=== PATIENT | female | born 1995 | race Two or more races ===

== ENCOUNTER 2017-05-31 10:11 | Emergency (ER) | payer SELFPAY ==
[~2017-05-31] VITALS: Ht 165.1 cm; Wt 70.9 kg
[2017-05-31 10:37] LABS: BILIRUBIN,URINE NEGATIVE (NEG); GLUCOSE,URINE NEGATIVE (NEG); NITRITE,URINE NEGATIVE (NEG); PH,URINE 7.5; PROTEIN,URINE NEGATIVE (NEG-TRACE); UROBILINOGEN,URINE 0.2 mg/dL (0.2 mg/dL)
[2017-05-31 10:47] LABS: BACTERIA,URINE FEW /HPF (0-FEW); SQUAMOUS EPITHELIAL CELL,UR MOD /LPF
--- NOTE | 2017-05-31 10:49 | PHYS DOC ---
Past Medical History Past Medical History: No Pertinent History Past Surgical History: Alcohol Use: None Drug Use: None Adult General Chief Complaint Chief Complaint: VAGINAL BLEEDING [facility] HPI Patient is a 22 year old female since emergency department stating that she is with a last normal menstrual period March 19. Patient states that last night she developed lower abdominal cramping. She states that she is having pain with urination. She states that she is also having some vaginal bleeding which she noticed more when she was urinating. Patient states that she is a 2 para 1 ABO. Patient is taking vitamins. She denies any further vaginal discharge. She denies any fever, chills or any nausea vomiting. Patient is [place] speaking only all information was obtained to the all round butcher line. Review of Systems Review of Systems Constitutional: Denies fever or chills [] Eyes: Denies change in visual acuity, redness, or eye pain [] HENT: Denies nasal congestion or sore throat [] Respiratory: Denies cough or shortness of breath [] Cardiovascular: No additional information not addressed in HPI [] GI: lower abdominal cramping, denies nausea, vomiting, bloody stools or diarrhea [] : dysuria denies hematuria [] Musculoskeletal: Denies back pain or joint pain [] Integument: Denies rash or skin lesions [] Neurologic: Denies headache, focal weakness or sensory changes [] Endocrine: Denies polyuria or polydipsia [] All other systems were reviewed and found to be within normal limits, except as documented in this note. Allergies Allergies Allergies Coded Allergies Type Severity Reaction Last Updated Verified No Known Drug Allergies 01/19/16 No Physical Exam Physical Exam Constitutional: Well developed, well nourished, no acute distress, non-toxic appearance. [] HENT: Normocephalic, atraumatic, bilateral external ears normal, oropharynx moist, no oral exudates, nose normal. [] Eyes: PERRLA, EOMI, conjunctiva normal, no discharge. [] Neck: Normal range of motion, no tenderness, supple, no stridor. [] Cardiovascular:Heart rate regular rhythm, no murmur [] Lungs & Thorax: Bilateral breath sounds clear to auscultation [] Abdomen: Bowel sounds hypoactive, soft, no tenderness, no masses, no pulsatile masses. [] Skin: Warm, dry, no erythema, no rash. [] Back: No tenderness, no CVA tenderness. [] Extremities: No tenderness, no cyanosis, no clubbing, ROM intact, no edema. [] Neurologic: Alert and oriented X 3, normal motor function, normal sensory function, no focal deficits noted. [] Psychologic: Affect normal, judgement normal, mood normal. [] Vaginal exam: This was performed with Carmella RN at bedside. Speculum exam patient was noted to have minute amount of vaginal bleeding. Manual exam patient with bilateral adnexal and cervical motion tenderness. Cervix does not appear to be open. Cultures obtained Current Patient Data Vital Signs Vital Signs Date Time Temp Pulse Resp B/P (MAP) Pulse Ox O2 Delivery O2 Flow Rate FiO2 05/31/17 10:29 98.2 84 16 114/55 (74) 99 Room Air 98.2 Lab Values Laboratory Tests Test 05/31/17 10:23 05/31/17 10:26 05/31/17 10:55 Urine Collection Type Void Urine Color Yellow Urine Clarity Clear Urine pH 7.5 Urine Specific [place] <=1.005 Urine Protein Negative mg/dL (NEG-TRACE) Urine Glucose (UA) Negative mg/dL (NEG) Urine Ketones (Stick) Negative mg/dL (NEG) Urine Blood Large (NEG) Urine Nitrite Negative (NEG) Urine Bilirubin Negative (NEG) Urine Urobilinogen Dipstick 0.2 mg/dL (0.2 mg/dL) Urine Leukocyte Esterase Small (NEG) Urine RBC 3-5 /HPF (0-2) Urine WBC 5-10 /HPF (0-4) Urine Squamous Epithelial Cells Mod /LPF Urine Bacteria Few /HPF (0-FEW) POC Urine HCG, Qualitative Hcg positive (Negative) White Blood Count 8.6 x10^3/uL (4.0-11.0) Red Blood Count 4.39 x10^6/uL (3.50-5.40) Hemoglobin 13.1 g/dL (12.0-15.5) Hematocrit 38.3 % (36.0-47.0) Mean Corpuscular Volume 87 fL (79-100) Mean Corpuscular Hemoglobin 30 pg (25-35) Mean Corpuscular Hemoglobin Concent 34 g/dL (31-37) Red Cell Distribution Width 14.1 % (11.5-14.5) Platelet Count 223 x10^3/uL (140-400) Neutrophils (%) (Auto) 69 % (31-73) Lymphocytes (%) (Auto) 19 % (24-48) L Monocytes (%) (Auto) 8 % (0-9) Eosinophils (%) (Auto) 4 % (0-3) H Basophils (%) (Auto) 1 % (0-3) Neutrophils # (Auto) 5.9 x10^3uL (1.8-7.7) Lymphocytes # (Auto) 1.6 x10^3/uL (1.0-4.8) Monocytes # (Auto) 0.7 x10^3/uL (0.0-1.1) Eosinophils # (Auto) 0.3 x10^3/uL (0.0-0.7) Basophils # (Auto) 0.1 x10^3/uL (0.0-0.2) Maternal Serum HCG Beta Subunit 86453 mIU/mL (0-5) H Laboratory Tests 05/31/17 10:55 Microbiology 05/31/17 Wet Prep - Final, Complete EKG EKG [] Radiology/Procedures Radiology/Procedures [facility] [address] [place], [place] [id number] IMAGING REPORT Signed PATIENT: BINDU MCCALL ACCOUNT: [id number] : 1995 LOCATION: ER AGE: 22 SEX: F EXAM STATUS: REG ER ORD. PHYSICIAN: MANOJ LOPEZ APRN REASON: vaginal bleeding LNMP 03/19/2017 PROCEDURE: OB < 14 WKS Obstetrical ultrasound, 05/31/2017: History: Vaginal bleeding, Transabdominal scans were obtained. The uterus contains a single gestational sac. It contains a pole demonstrating a crown-rump length of 1.0 cm. This is compatible with a gestational age of 7 weeks and 1 day, yielding a sonographic EDC of 01/16/2018. activity and heart motion are present. The heart rate is 150 bpm. No subchorionic hemorrhage is evident. The ovaries are of normal size. A 1.4 cm cyst is evident in the right ovary. Blood flow is present in the ovaries. The adnexal regions are otherwise unremarkable. No free fluid is evident in the pelvis. IMPRESSION: 1. Single viable intrauterine fetus of approximate 7 weeks gestational age. 2. Small right ovarian cyst. DICTATED and SIGNED BY: NABIL JONES MD DATE: 05/31/17 1155 CC: MANOJ LOPEZ APRN; NO PCP ~ [] Course & Med Decision Making Course & Med Decision Making Pertinent Labs and Imaging studies reviewed. (See chart for details) blood type is O+. Wet prep was positive for bacterial vaginosis. Urine was positive for small amount leukocyte Estrace. Ultrasound of the pelvis identified a 7-week-old gestational fetus. Patient was provided with discharge instructions, treatment regimens and follow-up recommendations. She'll be provided with Macrobid and Flagyl. Recommended vaginal rest. Recommended that she keep her follow-up appointment tomorrow. All discharge instructions was provided through the all round butcher line. [] I've spoken with the patient and/or caregivers. I've explained the patient's condition, diagnosis and treatment plan based on information available to me at this time. I've answered the patient's and/or caregivers questions and addressed any concerns. The patient and/or caregivers have a good understanding the patient's diagnosis, condition and treatment plan as can be expected at this point. Vital signs have been stabilized. The patient's condition is stable for discharge from the emergency department. The patient will pursue further outpatient evaluation with her primary care provider or other designated consulting physician as outlined in the discharge instructions. Patient and/or caregivers are agreeable to this plan of care and follow-up instructions have been explained in detail. The patient and/or caregivers have received these instructions in written format and expressed understanding of these discharge instructions. The patient and her caregivers are aware that if any significant change in condition or worsening of symptoms should prompt him to immediately return to this of the closest emergency department. If an emergent department is not readily available I would encourage him to call 911. Brandon Disclaimer Brandon Disclaimer This electronic medical record was generated, in whole or in part, using a voice recognition dictation system. Departure Departure Impression: Primary Impression: Vaginal bleeding in Additional Impressions: Urinary tract infection during Bacterial vaginosis Disposition: HOME, SELF-CARE Condition: STABLE Referrals: UNKNOWN PCP NAME (PCP) Patient Instructions: Bacterial Vaginosis, [id number], - Urinary Tract Infection, Vaginal Bleeding During , First Trimester Additional Instructions: Activity this tolerated. Medications as prescribed. Treatment plenty of fluids such as water and cranberry juice. Applicable rages cocktail, carbonate beverages, citrus foods, caffeine, and now causes considered irritants to the bladder. Keep her follow-up appointment which you have tomorrow with her ACTIVITY MANAGER. Return back to the emergency department sent symptoms become worse. Tylenol for pain and discomfort. Pelvic rest, do not place anything in your vaginal area. Scripts Nitrofurantoin Monohyd/M-Cryst (MACROBID 100 MG CAPSULE) 100 Mg Capsule 1 CAP PO BID, #14 CAP Prov: MANOJ LOPEZ APRN 05/31/17 Metronidazole (FLAGYL) 500 Mg Tablet 1 TAB PO BID, #14 TAB Prov: MANOJ LOPEZ APRN 05/31/17 Problem Qualifiers Additional Impressions: Urinary tract infection during Trimester: first trimester Qualified Codes: O23.41 - Unspecified infection of urinary tract in , first trimester MANOJ LOPEZ APRN May 31, 2017 10:49
[2017-05-31 11:11] LABS: BASO # 0.1 x10^3/uL (0.0-0.2); BASO % 1 % (0-3); EOS % 4 % (0-3); HEMATOCRIT 38.3 % (36.0-47.0); HEMOGLOBIN 13.1 g/dL (12.0-15.5); LYMPH # 1.6 x10^3/uL (1.0-4.8); LYMPH % 19 % (24-48); MEAN CORPUSCULAR HEMOGLOBIN 30 pg (25-35); MEAN CORPUSCULAR HGB CONC 34 g/dL (31-37); MEAN CORPUSCULAR VOLUME 87 fL (79-100); MONO % 8 % (0-9); NEUT % 69 % (31-73); PLATELET COUNT 223 x10^3/uL (140-400); RED BLOOD COUNT 4.39 x10^6/uL (3.50-5.40); RED CELL DISTRIBUTION WIDTH 14.1 % (11.5-14.5); WHITE BLOOD COUNT 8.6 x10^3/uL (4.0-11.0)
--- NOTE | 2017-05-31 12:13 | RAD ---
Obstetrical ultrasound, 05/31/2017: History: Vaginal bleeding, Transabdominal scans were obtained. The uterus contains a single gestational sac. It contains a pole demonstrating a crown-rump length of 1.0 cm. This is compatible with a gestational age of 7 weeks and 1 day, yielding a sonographic EDC of 01/16/2018. activity and heart motion are present. The heart rate is 150 bpm. No subchorionic hemorrhage is evident. The ovaries are of normal size. A 1.4 cm cyst is evident in the right ovary. Blood flow is present in the ovaries. The adnexal regions are otherwise unremarkable. No free fluid is evident in the pelvis. IMPRESSION: 1. Single viable intrauterine fetus of approximate 7 weeks gestational age. 2. Small right ovarian cyst.
[2017-05-31 12:30] VITALS: BP 98/54
[2017-05-31] MEDS ORDERED: METR500T PO (12:32)
[2017-05-31] MEDS ORDERED: NITR100C62 PO (12:32)
== END 2017-05-31 13:00 | disposition home or self-care (01) ==
LOC: ER 10:11
DX: O46.91 Antepartum hemorrhage, unspecified, first trimester (principal); O23.41 Unspecified infection of urinary tract in pregnancy, first trimester; O23.591 Infection of other part of genital tract in pregnancy, first trimester; Z3A.01 Less than 8 weeks gestation of pregnancy; Z98.890 Other specified postprocedural states
CPT/HCPCS: 36415; 76801; 81001; 81025; 84702; 85025; 86900; 86901; 87086; 87491; 87591; 99285; Q0111